=== PATIENT | female | born 1945 | race Native Hawaiian/Other Pacific Islander ===

== ENCOUNTER 2017-07-29 15:51 | Emergency (ER) | payer OTHER ==
[~2017-07-29] VITALS: Ht 162.6 cm; Wt 98.4 kg
[2017-07-29 18:44] LABS: PLATELET COUNT 172 K/uL (152-353)
[2017-07-29 18:47] LABS: POTASSIUM 3.9 mmol/L (3.6-5.2)
[2017-07-29 20:12] VITALS: BP 155/74; TEMP 98.1
== END 2017-07-29 20:12 | disposition home or self-care (01) ==
LOC: ED 15:51
PROVIDERS: Emergency Medicine
DX: I10 Essential (primary) hypertension (principal); R07.89 Other chest pain; E11.9 Type 2 diabetes mellitus without complications
CPT/HCPCS: 36415; 80048; 81000; 82550; 82553; 84484; 85027; 93005; 99283